=== PATIENT | male | born 1960 | race Caucasian/White ===

== ENCOUNTER 2023-08-06 14:34 | Outpatient (CLI) | payer BC | END 2023-08-06 14:35 | disposition home or self-care (01) | LOC: DTY/OP 14:34 | PROVIDERS: ATTEND Surgery | DX: R63.5 Abnormal weight gain (principal) | CPT/HCPCS: 97802 ==

== ENCOUNTER 2025-05-23 10:16 | Outpatient (CLI) | payer MEDICARE | END 2025-05-23 10:17 | disposition home or self-care (01) | LOC: BICRAD 10:16 | PROVIDERS: ATTEND Nurse Practitioner Family | DX: M79.645 Pain in left finger(s) (principal) ==